=== PATIENT | female | born 1995 | race Caucasian/White ===

== ENCOUNTER 2016-10-02 09:00 | Outpatient (RCR) | payer OTHER ==
--- NOTE | 2016-08-31 11:20 | PT/OT/ST INITIAL EVALUATION ---
[facility]. PHYSICAL/OCCUPATIONAL THERAPY [address] [place] [id number] PLAN OF CARE/ASSESSMENT FOR OUTPATIENT REHABILITATION (Complete for Initial Claims Only) 1. PATIENT'S NAME Genna Briseno 2. ACC. No [id number] 3. PRIMARY DX Status post right shoulder scope with lysis of adhesions. 4. SECONDARY DX Previous anterior labral repair and rotator cuff repair. 5. ONSET DATE 08/10/2016 6. REFERRAL DATE 08/24/2016 7. SOC. DATE/TIME 08/29/2016 13:00 8. PRIOR LEVEL OF FUNCTION; PERTINENT HISTORY (Prior therapy results, reason for referral.) S: The patient was referred to physical therapy by Dr. Canas with the diagnosis of status post right shoulder scope with lysis of adhesions on 08/10/2016. The patient had previously undergone an anterior labral repair and right rotator cuff repair with capsulorraphy on 12/22/2015. The patient notes that she then underwent therapy for several months, but was still limited on motion and strength due to pain at her shoulder. The patient notes that since her last surgery, she feels she is doing better, however, certain motions are still tight at her shoulder. The patient is a 18-year-old female. 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 The patine notes that she still occasionally has some numbness and tingling at her right arm that travels distally to her hand. Occupational and social history: The patient is hoping to regain motion and strength to play softball this spring. The patient plays 1st, 3rd and outfield. Current pain rating is 5/10. Past medical history: No other significant past medical history is reported. Medication includes ibuprofen or Tylenol as needed. Patient's goal for therapy is to return to playing softball. 9. INITIAL ASSESSMENT/SAFETY PRECAUTIONS/MEDICAL COMPLICATIONS (Level of function at start of care. Be specific, use objective measures, list problems.) O: APPEARANCE: The patient is a healthy looking 18-year-old female. She demonstrates slight forward head posture and mildly rounded shoulders. The patient does demonstrate 4 incision portals at right shoulder. They appear healthy and well healed. Mild swelling is noted at her right lateral delt and biceps region of her right shoulder. PALPATION: The patient has tenderness to palpation at her right anterior shoulder, posterior shoulder, biceps, triceps, and upper trap region. JOINT MOBILITY: The patient demonstrated good overall joint mobility at both her right and left shoulder. No significant deficits were noted and the patient had no pain with mobility. RANGE OF MOTION/FLEXIBILITY: Right shoulder active flexion 157 degrees, abduction 153 degrees. Left shoulder active flexion 175 degrees, abduction 175 degrees. Passive range of motion right shoulder flexion 153 degrees, abduction 160 degrees, external rotation 68 degrees, and internal rotation 30 degrees. Left shoulder passive range of motion flexion 170 degrees, abduction 172 degrees, external rotation 115 degrees, and internal rotation 57 degrees. STRENGTH: Right shoulder flexion and abduction were 4/5 manual muscle test. External rotation 5/5 manual muscle test, internal rotation 4+/5 manual muscle test. Elbow flexion and extension were both 5/5 manual muscle test. Left shoulder strength flexion 5/5 manual muscle test, abduction 4+/5 manual muscle test, external rotation 4+/5 manual muscle test, internal rotation 5/5 manual muscle test and elbow flexion and extension 5/5 manual muscle test. TODAY'S TREATMENT: Included initial evaluation followed by gentle joint mobilization and passive stretching to the patient's right shoulder. The patient was then instructed on home exercise program for flexibility and light stabilization and strengthening activities. Gentle manual stretching was also performed along with ASTYM and the treatment was ended with vasopneumatic cold compression to the patient's right shoulder. 10. INITIAL POC: (Specify procedures, modalities, short and rat exterminator goals) A: The patient is status post right scope lysis of adhesions. PROGNOSIS: The patient is a good candidate for physical therapy to regain range of motion, flexibility, stabilization and strength at the right shoulder. GOALS: 1. The patient to be compliant with home exercise program in 2 weeks. 2. The patient to demonstrate 10 degrees improvement in active flexibility and abduction at right shoulder in 4 weeks. 3. The patient to demonstrate half a muscle grade improvement in strength at right shoulder without pain in 4 weeks. 4. The patient to be able to perform light toss and throwing activities using right arm without pain in 6 weeks. 5. The patient to return to participation in softball in 8 weeks. PLAN: The patient will be seen 2 times a week over the next 6 weeks. Plan on progressing the patient with range of motion, flexibility, stabilization, and light strengthening activities as tolerated. Modalities and manual therapy will be used as necessary to decrease pain and inflammation. 11. PHYSICIAN SIGNATURE ? ON FILE OR ENTER HERE: 12. DATE: I certify the need for these services furnished under this plan of care and if for partial hospitalization. 13. CERTIFICATION FROM THROUGH
== END 2016-10-30 12:00 | disposition home or self-care (01) ==
LOC: PT 09:00
PROVIDERS: ATTEND Orthopaedic Surgery
DX: M25.611 Stiffness of right shoulder, not elsewhere classified (principal); Z98.890 Other specified postprocedural states

== ENCOUNTER 2016-12-24 10:52 | Emergency (ER) | payer OTHER ==
[~2016-12-24] VITALS: Ht 165.1 cm; Wt 96.8 kg
--- OUTSIDE RECORDS SUMMARY | 2016-12-24 10:56 | XMS REPORT | Continuity of Care Document ---
Author Author [facility] Address Unknown Phone Unavailable Allergies Active Description Code Type Severity Reaction Onset Reported/Identified Relationship to Patient Clinical Status Yes No Known Drug Allergies [id number] Drug Allergy Unknown N/ A 05/28/2015 Medications Problems Date Dx Coded Attending Type Code Diagnosis Diagnosed By 07/19/1199 Uriel Canas MD Ot M25.611 STIFFNESS OF RIGHT SHOULDER, NOT ELSEWHE 07/19/1199 Uriel Canas MD Ot Z98.890 OTHER SPECIFIED POSTPROCEDURAL STATES 06/02/2015 Darshana Zapien WOUND/OSTOMY NURSE Ot S00.33XA 06/02/2015 Darshana Zapien WOUND/OSTOMY NURSE Ot X58.XXXA 06/02/2015 Darshana Zapien WOUND/OSTOMY NURSE Ot Y93.69 08/26/2015 Darshana Zapien WOUND/OSTOMY NURSE Ot S00.33XA 08/26/2015 Darshana Zapien WOUND/OSTOMY NURSE Ot X58.XXXA 08/26/2015 Darshana Zapien WOUND/OSTOMY NURSE Ot Y93.69 09/06/2016 Uriel Canas MD Ot M25.611 STIFFNESS OF RIGHT SHOULDER, NOT ELSEWHE 09/06/2016 Uriel Canas MD Ot Z98.890 OTHER SPECIFIED POSTPROCEDURAL STATES 09/08/2016 Uriel Canas MD Ot M25.611 STIFFNESS OF RIGHT SHOULDER, NOT ELSEWHE 09/08/2016 Uriel Canas MD Ot Z98.890 OTHER SPECIFIED POSTPROCEDURAL STATES 09/18/2016 Uriel Canas MD Ot M25.611 STIFFNESS OF RIGHT SHOULDER, NOT ELSEWHE 09/18/2016 Uriel Canas MD Ot Z98.890 OTHER SPECIFIED POSTPROCEDURAL STATES 09/18/2016 Uriel Canas MD Ot M25.611 STIFFNESS OF RIGHT SHOULDER, NOT ELSEWHE 09/18/2016 Uriel Canas MD Ot Z98.890 OTHER SPECIFIED POSTPROCEDURAL STATES 09/22/2016 Uriel Canas MD Ot M25.611 STIFFNESS OF RIGHT SHOULDER, NOT ELSEWHE 09/22/2016 Uriel Canas MD Ot Z98.890 OTHER SPECIFIED POSTPROCEDURAL STATES 09/28/2016 Uriel Canas MD Ot M25.611 STIFFNESS OF RIGHT SHOULDER, NOT ELSEWHE 09/28/2016 Uriel Canas MD L Ot Z98.890 OTHER SPECIFIED POSTPROCEDURAL STATES 09/29/2016 Uriel Canas MD Ot M25.611 STIFFNESS OF RIGHT SHOULDER, NOT ELSEWHE 09/29/2016 Feroz Canas MDik L Ot Z98.890 OTHER SPECIFIED POSTPROCEDURAL STATES 10/10/2016 Uriel Canas MD Ot M25.611 STIFFNESS OF RIGHT SHOULDER, NOT ELSEWHE 10/10/2016 Feroz Canas MDik L Ot Z98.890 OTHER SPECIFIED POSTPROCEDURAL STATES 11/13/2016 Uriel Canas MD Ot M25.611 STIFFNESS OF RIGHT SHOULDER, NOT ELSEWHE 11/13/2016 Feroz Canas MDik L Ot Z98.890 OTHER SPECIFIED POSTPROCEDURAL STATES Procedures Results Encounters ACCT No. Visit Date/Time Discharge Status Pt. Type Provider Facility Loc./Unit Complaint [id number] 10/02/2016 09:00:00 2016 12:00:00 DIS Outpatient Uriel Canas MD [facility] PT S/P ROTATOR CUFF REPAIR [id number] 05/28/2015 18:25:00 2014 23:59:59 CLS Outpatient Darshana Zapien [facility]
--- OUTSIDE RECORDS SUMMARY | 2016-12-24 10:59 | XMS REPORT | Continuity of Care Document ---
Author Author [facility] Address Unknown Phone Unavailable Allergies Active Description Code Type Severity Reaction Onset Reported/Identified Relationship to Patient Clinical Status Yes No Known Drug Allergies [id number] Drug Allergy Unknown N/ A 05/28/2015 Medications Problems Date Dx Coded Attending Type Code Diagnosis Diagnosed By 07/19/1199 Uriel Canas MD Ot M25.611 STIFFNESS OF RIGHT SHOULDER, NOT ELSEWHE 07/19/1199 Uriel Canas MD Ot Z98.890 OTHER SPECIFIED POSTPROCEDURAL STATES 06/02/2015 Darshana Zapien NEUROPSYCHOLOGIST Ot S00.33XA 06/02/2015 Darshana Zapien NEUROPSYCHOLOGIST Ot X58.XXXA 06/02/2015 Darshana Zapien NEUROPSYCHOLOGIST Ot Y93.69 08/26/2015 Darshana Zapien NEUROPSYCHOLOGIST Ot S00.33XA 08/26/2015 Darshana Zapien NEUROPSYCHOLOGIST Ot X58.XXXA 08/26/2015 Darshana Zapien NEUROPSYCHOLOGIST Ot Y93.69 09/06/2016 Uriel Canas MD Ot [...] Status Pt. Type Provider Facility Loc./Unit Complaint [id number] 10/02/2016 09:00:00 2016 12:00:00 DIS Outpatient Uriel Canas MD [facility] PT S/P ROTATOR CUFF REPAIR [id number] 05/28/2015 18:25:00 2014 23:59:59 CLS Outpatient Darshana Zapien [facility]
[2016-12-24] MEDS ORDERED: FLUT9.9S NS (11:11)
[2016-12-24] MEDS ORDERED: NORG1TAB75 PO (11:11)
[2016-12-24] MEDS ORDERED: NAPR500T8 PO (11:11)
[2016-12-24] MEDS ORDERED: FEXO-14 PO (11:11)
--- NOTE | 2016-12-24 11:24 | Diagnostic Imaging Report ---
INDICATION: Trauma, right ankle pain. FINDINGS: Three views of the right ankle shows no fracture, dislocation or other acute bony abnormality. Ankle joint is not widened. There is mild swelling laterally. IMPRESSION: Swelling. No fracture. Dictated by: Dictated on workstation # [id number]
[2016-12-24 11:39] VITALS: BP 153/95
== END 2016-12-24 11:40 | disposition home or self-care (01) ==
LOC: ED 10:54
DX: S93.491A Sprain of other ligament of right ankle, initial encounter (principal); W01.0XXA Fall on same level from slipping, tripping and stumbling without subsequent striking against object, initial encounter; Y93.41 Activity, dancing; Y92.214 College as the place of occurrence of the external cause; Y99.8 Other external cause status
CPT/HCPCS: 73610; 99282; 99283